=== PATIENT | female | born 1950 | race Caucasian/White ===

== ENCOUNTER 2017-04-16 15:53 | Outpatient (CLI) | payer MEDICARE, OTHER ==
--- NOTE | 2017-04-20 18:26 | Mammography Report ---
DIGITAL SCREENING MAMMOGRAM: 04/16/2017 CLINICAL INDICATION: A 66-year-old nulliparous patient for screening. The patient's previous mammograms have been purged. Comparison is made to report of bilateral screen ing mammogram of 01/01/2006. TECHNIQUE: Routine CC and MLO projections as well as bilateral laterally exaggerated craniocaudal vi ews were obtained of the breasts. The breasts demonstrate heterogeneously dense fibroglandular parenchyma bilaterally. Coarse, typical ly benign calcifications are present. No suspicious masses, clustered microcalcifications, or region s of architectural distortion are identified. IMPRESSION: BENIGN FINDINGS. RECOMMENDATION: ROUTINE ANNUAL SCREENING UNLESS OTHERWISE CLINICALLY INDICATED. BIRADS CATEGORY: 2, BENIGN FINDINGS. STANDARD QUALIFYING STATEMENTS 1. This examination was reviewed with the aid of Computed-Aided Detection (CAD). 2. A negative or benign imaging report should not delay biopsy if clinically suspicious findings are present. Consider surgical consultation if warranted. More than 5% of cancers are not identified b y imaging. 3. Dense breasts may obscure an underlying neoplasm. JOB #: [id number] EXT JOB #:[id number]
== END 2017-04-16 15:54 | disposition home or self-care (01) ==
LOC: DI.S 15:53
PROVIDERS: ATTEND Physician Assistant
DX: Z12.31 Encounter for screening mammogram for malignant neoplasm of breast (principal)
CPT/HCPCS: 77067

== ENCOUNTER 2017-04-16 15:54 | Outpatient (CLI) | payer MEDICARE, OTHER ==
--- NOTE | 2017-04-16 17:07 | XRAY Report ---
EXAM: CHEST RADIOGRAPHY EXAM DATE: 04/16/2017 04:21 PM. CLINICAL HISTORY: COUGH,SMOKER. COMPARISON: None. TECHNIQUE: 2 views. FINDINGS: Lungs/Pleura: No focal opacities evident. No pleural effusion. No pneumothorax. Increased volumes. Mediastinum: Heart and mediastinal contours are unremarkable. Other: None. IMPRESSION: Increased volumes may be due to inspiration effort or obstructive airways disease [facility] Referring Provider Line: [phone] SITE ID: [id number]
== END 2017-04-16 15:55 | disposition home or self-care (01) ==
LOC: DI.S 15:54
PROVIDERS: ATTEND Physician Assistant
DX: R05 Cough (principal); Z87.891 Personal history of nicotine dependence
CPT/HCPCS: 71020

== ENCOUNTER 2022-04-20 14:01 | Outpatient (CLI) | payer MEDICARE ==
--- NOTE | 2022-04-20 16:26 | XRAY Report ---
PROCEDURE: Hand 3 View BILAT INDICATIONS: PSORIASIS TECHNIQUE: 3 views of the hand(s) acquired. COMPARISON: None FINDINGS: Bones: No fractures or dislocations. Mild joint space narrowing and bilateral MCP joints and interp halangeal joints are seen. Subtle erosion are noted involving dorsal aspect of bilateral third metaca rpal heads. No suspicious bony lesions. Soft tissues: No suspicious soft tissue calcifications. 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 Possible erosions involving bilateral third metacarpa l heads concerning for changes related to inflammatory arthropathy. Reviewed by: Tanner Jimenez MD on 04/20/2022 4:24 PM PDT Approved by: Tanner Jimenez MD on 04/20/2022 4:24 PM PDT Station ID: [id number]
[2022-04-20 20:20] LABS: EOSINOPHILS # (AUTO) 0.1 10^3/uL (0.0-0.7); EOSINOPHILS % (AUTO) 2.7 %; HCT - HEMATOCRIT 43.4 % (37.0-47.0); HGB - HEMOGLOBIN 14.9 g/dL (12.0-16.0); LYMPHOCYTES # (AUTO) 1.1 10^3/uL (1.5-3.5); LYMPHOCYTES % (AUTO) 26.3 %; MEAN CORPUSCULAR HEMOGLOBIN 35.6 pg (27.0-31.0); MEAN CORPUSCULAR HGB CONC 34.3 g/dL (32.0-36.0); MEAN CORPUSCULAR VOLUME 103.6 fL (81.0-99.0); MEAN PLATELET VOLUME 12.1 fL (7.9-10.8); MONOCYTES # (AUTO) 0.5 10^3/uL (0.0-1.0); MONOCYTES % (AUTO) 12.9 %; NEUTROPHILS # (AUTO) 2.3 10^3/uL (1.5-6.6); NEUTROPHILS % (AUTO) 56.9 %; PLT - PLATELET COUNT 95 10^3/uL (130-450); RED BLOOD COUNT 4.19 10^6/uL (4.20-5.40); RED CELL DISTRIBUTION WIDTH 12.8 % (12.0-15.0); WHITE BLOOD COUNT 4.1 x10^3/uL (4.8-10.8)
[2022-04-20 20:38] LABS: ALBUMIN 3.6 g/dL (3.2-5.5); ALBUMIN/GLOBULIN RATIO 1.3 (1.0-2.2); ALKALINE PHOSPHATASE 90 IU/L (42-121); ALT ALANINE AMINOTRANSFERASE 39 IU/L (10-60); AST ASPARTATE AMINOTRANSFERASE 53 IU/L (10-42); BILIRUBIN,TOTAL 1.4 mg/dL (0.2-1.0); BUN - BLOOD UREA NITROGEN 28 mg/dL (6-20); CALCIUM 9.1 mg/dL (8.5-10.3); CARBON DIOXIDE - CO2 27 mmol/L (21-32); CHLORIDE 107 mmol/L (101-111); CREATININE 0.8 mg/dL (0.4-1.0); GFR - MDRD 71 (>89); GLUCOSE 96 mg/dL (70-100); POTASSIUM 4.2 mmol/L (3.5-5.0); SODIUM 140 mmol/L (135-145); TOTAL PROTEIN 6.4 g/dL (6.7-8.2)
[2022-04-20 20:57] LABS: CRP - C-REACTIVE PROTEIN < 1.0 mg/dL (0-1.0)
== END 2022-04-20 14:02 | disposition home or self-care (01) ==
LOC: LAB.S 14:01 → DI.S 14:02
PROVIDERS: ATTEND Nurse Practitioner
DX: M19.041 Primary osteoarthritis, right hand (principal); M19.042 Primary osteoarthritis, left hand; L40.9 Psoriasis, unspecified
CPT/HCPCS: 36415; 80053; 85025; 85651; 86140

== ENCOUNTER 2022-05-01 14:11 | Outpatient (CLI) | payer MEDICARE ==
[2022-05-01 20:35] LABS: INR 1.6 (0.8-1.2); PT - PROTHROMBIN TIME 17.2 secs (9.9-12.6)
== END 2022-05-01 14:12 | disposition home or self-care (01) ==
LOC: LAB.S 14:11
PROVIDERS: ATTEND Internal Medicine
DX: C22.0 Liver cell carcinoma (principal); I85.00 Esophageal varices without bleeding; K74.60 Unspecified cirrhosis of liver
CPT/HCPCS: 36415; 82105; 85610

== ENCOUNTER 2022-10-16 14:43 | Outpatient (CLI) | payer MEDICARE ==
[2022-10-16 19:40] LABS: BASOPHILS % (AUTO) 1.1 %; EOSINOPHILS # (AUTO) 0.1 10^3/uL (0.0-0.7); EOSINOPHILS % (AUTO) 2.8 %; HCT - HEMATOCRIT 44.9 % (37.0-47.0); LYMPHOCYTES # (AUTO) 1.3 10^3/uL (1.5-3.5); LYMPHOCYTES % (AUTO) 35.9 %; MEAN CORPUSCULAR HEMOGLOBIN 34.6 pg (27.0-31.0); MEAN CORPUSCULAR HGB CONC 33.4 g/dL (32.0-36.0); MEAN CORPUSCULAR VOLUME 103.7 fL (81.0-99.0); MEAN PLATELET VOLUME 11.4 fL (7.9-10.8); MONOCYTES # (AUTO) 0.5 10^3/uL (0.0-1.0); MONOCYTES % (AUTO) 13.7 %; NEUTROPHILS # (AUTO) 1.6 10^3/uL (1.5-6.6); NEUTROPHILS % (AUTO) 46.5 %; PLT - PLATELET COUNT 102 10^3/uL (130-450); RED BLOOD COUNT 4.33 10^6/uL (4.20-5.40); RED CELL DISTRIBUTION WIDTH 12.8 % (12.0-15.0); WHITE BLOOD COUNT 3.5 x10^3/uL (4.8-10.8)
[2022-10-16 20:06] LABS: INR 1.5 (0.8-1.2)
[2022-10-16 20:13] LABS: ALBUMIN 3.5 g/dL (3.2-5.5); ALBUMIN/GLOBULIN RATIO 1.3 (1.0-2.2); BILIRUBIN,TOTAL 1.5 mg/dL (0.2-1.0); CALCIUM 8.8 mg/dL (8.5-10.3); CREATININE 0.8 mg/dL (0.4-1.0); POTASSIUM 3.9 mmol/L (3.5-5.0); TOTAL PROTEIN 6.3 g/dL (6.7-8.2)
== END 2022-10-16 14:44 | disposition home or self-care (01) ==
LOC: LAB.S 14:43
PROVIDERS: ATTEND Internal Medicine Gastroenterology
DX: C22.0 Liver cell carcinoma (principal); I85.00 Esophageal varices without bleeding; K74.60 Unspecified cirrhosis of liver
CPT/HCPCS: 36415; 80053; 82105; 85025; 85610

== ENCOUNTER 2023-06-17 06:34 | Day surgery (SDC) | payer MEDICARE ==
[~2023-06-17 06:34] MED LIST: CYCLOPENTOLATE 1% OPHTH DROPS 2 ML ONE; KETOROLAC 0.45% OPHTH DROPS ONE; PHENYLEPHRINE 2.5% OPHTH 2 ML DROPS ONE; PROPARACAINE 0.5% OPHTH DROPS 15 ML ONE
[2023-06-17] MEDS ORDERED: LACTATED RINGERS 1,000 ML IV ONE ×3 (06:44→08:22)
[2023-06-17] MEDS ORDERED: KETOROLAC 0.45% OPHTH DROPS RIGHTEYE ONE (06:55)
[2023-06-17] MEDS ORDERED: PROPARACAINE 0.5% OPHTH DROPS 15 ML RIGHTEYE ONE ×2 (06:55→08:07)
[2023-06-17] MEDS ORDERED: PHENYLEPHRINE 2.5% OPHTH 2 ML DROPS RIGHTEYE ONE (07:00)
[2023-06-17] MEDS ORDERED: CYCLOPENTOLATE 1% OPHTH DROPS 2 ML RIGHTEYE ONE (07:00)
--- NOTE | 2023-06-17 07:09 | ANESTHESIA ---
Pre-Anesthesia VS, & Labs Height: 5 ft 7 in Weight (kg): 68.6 kg Body Mass Index: 23.6 BMI Classification: Normal - NPO >8 hours - Is Patient ?: No - Lab Results Lab results reviewed: Yes - Diagnosis R senile combined cataract (Marshal Calvert) - Procedure R extraction cataract c IOL (Marshal Calvert) Vital Signs: Temp Pulse Resp BP Pulse Ox O2 Flow Rate 37 C 61 15 136/72 H 100 06/17/23 06:58 06/17/23 06:58 06/17/23 06:58 06/17/23 06:58 06/17/23 06:58 Home Medications and Allergies Home Medications: Ambulatory Orders Famotidine [Acid Coding Manager] 20 mg PO HS 06/16/23 Furosemide [Lasix] 40 mg PO DAILY PRN 06/16/23 Spironolactone [Aldactone] 50 mg PO DAILY PRN 06/16/23 nadoloL [Corgard] 20 mg PO DAILY 06/16/23 oxyCODONE [Roxicodone] 2.5 mg PO Q4HR 06/16/23 Famotidine [Acid Coding Manager] 20 mg PO HS 06/16/23 Furosemide [Lasix] 40 mg PO DAILY PRN 06/16/23 Spironolactone [Aldactone] 50 mg PO DAILY PRN 06/16/23 nadoloL [Corgard] 20 mg PO DAILY 06/16/23 oxyCODONE [Roxicodone] 2.5 mg PO Q4HR 06/16/23 Allergies/Adverse Reactions: Allergies Allergy/AdvReac Type Severity Reaction Status Date / Time cephalexin [From Keflex] Allergy Rash Verified 06/16/23 13:58 Penicillins Allergy Rash Verified 06/16/23 13:58 metronidazole [From Flagyl] AdvReac Unknown Verified 06/16/23 13:58 Anes History & Medical History - Anesthetic History Anesthesia Complications: reports: No previous complications Family history of Anesthesia Complications: Denies Family history of Malignant Hyperthermia: Denies - Medical History Cardiovascular: reports: None Pulmonary: reports: Other Gastrointestinal: reports: Cirrhosis, Other Urinary: reports: None Musculoskeletal: reports: Other Skin: reports: Psoriasis Psychosocial: reports: Anxiety - Surgical History Eyes Ears Nose Throat (EENT): reports: Tonsil/Adenoidectomy Gynecologic: reports: Hysterectomy, Oophrectomy Exam General: Alert, Oriented x3, Cooperative Dental: WNL Mouth Openin Fingerbreadth Neck Mobility: Normal Mallampati classification: II Respiratory: Normal breath sounds Cardiovascular: Regular rate Neurological: Normal speech Mental/Cognitive Status: Alert/Oriented X3, Normal for patient Cognitive Status: Within normal limits Plan Anesthesia Type: MAC Consent for Procedure(s) Verified and Reviewed: Yes Code Status: Attempt Resuscitation ASA classification: 2-Mild systemic disease Is this case an emergency?: No
[2023-06-17] MEDS ORDERED: MIDAZOLAM 2 MG/2 ML VIAL ONE (07:27)
[2023-06-17] MEDS ORDERED: EPINEPHrine 1 MG/ML AMP ONE (07:41)
[2023-06-17] MEDS ORDERED: BRIMONIDINE 0.2% OPHTH DROPS 5 ML ONE (07:41)
[2023-06-17] MEDS ORDERED: TRIAMCIN/MOXIFLOX OPHTHALMIC 0.6 ML VIAL IO ONE ×2 (07:41→08:07)
[2023-06-17] MEDS ORDERED: TIMOLOL 0.5% OPHTH DROPS ONE (07:42)
[2023-06-17] MEDS ORDERED: BSS/LIDOCAINE/EPINEPHRINE 1 ML VIAL ONE (07:42)
[2023-06-17] MEDS ORDERED: fentaNYL 100 MCG/2 ML VIAL ONE (07:46)
[2023-06-17] MEDS ORDERED: LIDOCAINE-PF 2% 10 ML AMP SUBQ ONE (07:57)
[2023-06-17] MEDS ORDERED: EPINEPHrine 1 MG/ML AMP IR ONE (08:06)
[2023-06-17] MEDS ORDERED: BRIMONIDINE 0.2% OPHTH DROPS 5 ML OPTH ONE (08:06)
[2023-06-17] MEDS ORDERED: TIMOLOL 0.5% OPHTH DROPS OPTH ONE (08:07)
[2023-06-17] MEDS ORDERED: VANCOMYCIN OPHTH (TOPICAL) 10 MG/ML SYRINGE TOP ONE (08:07)
[2023-06-17] MEDS ORDERED: BSS/LIDOCAINE/EPINEPHRINE 1 ML SYRINGE IO ONE (08:07)
--- NOTE | 2023-06-17 08:33 | OPERATIVE REPORT ---
Operative Report - Other Other Information/Narrative: Date of Surgery: 06/17/23 Preop Dx: Visually significant cataract right eye. This was the first cataract surgery. Postop Dx: Same Procedure: Phacoemulsification with posterior chamber intraocular lens implant right eye Surgeon: Dr. 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 Best corrected visual acuity was 20/25 with glare to 20/70 vision in the right eye. Indications for surgery were: - Overall decrease in vision - Difficulty seeing words on a computer screen - Difficulty reading - Difficulty seeing street signs - Difficulty driving in low light or at night - Difficulty driving at night because of headlights from other vehicles - Difficulty with glare or bright lights in any situation The patient was consented at length concerning the risks and benefits of cataract surgery after which the patient expressed a desire to proceed with surgery. Operative Procedure: The patient was taken into OR#3 and placed under monitored anesthesia care. A surgical time-out was conducted confirming correct patient, correct procedure, and correct surgical site. The patient was given topical anesthesia and then prepped and draped in the usual sterile fashion. The eye was entered at the 6 and 3 oclock positions. Intracameral Shugarcaine was injected into the anterior chamber followed by a dispersive viscoelastic. A continuous-tear curvilinear capsulorhexis was performed. The nucleus was hydrodissected and phacoemulsified. The cortex was evacuated using automated infusion and aspiration. A cohesive viscoelastic was injected into the capsular bag and a 19.0 diopter intraocular lens was inserted into the bag. Infusion and aspiration were used to evacuate the viscoelastic materials from the eye. The wo unds were hydrated and the eye inflated to physiologic pressure using balanced salt solution. Approximately 0.25ml of a mixture of triamcinolone and moxifloxacin was injected trans-sclerally into the vitreous in the inferotemporal quadrant using a 30 gauge cannula. An additional 0.25ml of a mixture of triamcinolone and moxifloxacin was injected subconjunctivally in the superior quadrant for infection and inflammation prophylaxis. Wound integrity was checked with Weck-Margarita sponges and the phaco wound was found to be leaking. A 10-0 Nylon suture was placed across the wound and the leaking stopped. The patient was taken from the operating room in good condition and given post-op instructions.
[2023-06-17 08:38] VITALS: O2SAT 100
--- NOTE | 2023-06-17 08:43 | ANESTHESIA POST OP EVALUATION ---
Anesthesia Post Eval - Post Anesthesia Eval Vitals: Last Vital Signs Temp 36.3 C L 06/17/23 08:32 Pulse 16 L 06/17/23 08:32 Resp 16 06/17/23 08:32 BP 131/64 H 06/17/23 08:32 Pulse Ox 100 06/17/23 08:32 O2 Flow Rate CV Function Including HR & BP: Stable Pain Control: Satisfactory Nausea & Vomiting: Negative Mental Status: Baseline Respiratory Status: Airway Patent Hydration Status: Satisfactory Anesthesia Complications: None
[2023-06-17 08:58] VITALS: BP 115/66
== END 2023-06-17 06:35 | disposition home or self-care (01) ==
LOC: SDS 06:34
PROVIDERS: ATTEND Ophthalmology
DX: H25.811 Combined forms of age-related cataract, right eye (principal)
CPT/HCPCS: 66984; A9270; J3490; J7120

== ENCOUNTER 2023-08-05 14:02 | Outpatient (CLI) | payer MEDICARE ==
[2023-08-05 19:52] LABS: EOSINOPHILS # (AUTO) 0.1 10^3/uL (0.0-0.7); EOSINOPHILS % (AUTO) 2.5 %; HCT - HEMATOCRIT 43.7 % (37.0-47.0); HGB - HEMOGLOBIN 14.7 g/dL (12.0-16.0); LYMPHOCYTES # (AUTO) 1.3 10^3/uL (1.5-3.5); LYMPHOCYTES % (AUTO) 30.9 %; MEAN CORPUSCULAR HEMOGLOBIN 35.1 pg (27.0-31.0); MEAN CORPUSCULAR HGB CONC 33.6 g/dL (32.0-36.0); MEAN CORPUSCULAR VOLUME 104.3 fL (81.0-99.0); MEAN PLATELET VOLUME 11.7 fL (7.9-10.8); MONOCYTES # (AUTO) 0.5 10^3/uL (0.0-1.0); MONOCYTES % (AUTO) 12.6 %; NEUTROPHILS # (AUTO) 2.1 10^3/uL (1.5-6.6); NEUTROPHILS % (AUTO) 52.8 %; PLT - PLATELET COUNT 114 10^3/uL (130-450); RED BLOOD COUNT 4.19 10^6/uL (4.20-5.40); RED CELL DISTRIBUTION WIDTH 13.2 % (12.0-15.0); WHITE BLOOD COUNT 4.1 x10^3/uL (4.8-10.8)
[2023-08-05 20:04] LABS: ALBUMIN 3.5 g/dL (3.2-5.5); ALBUMIN/GLOBULIN RATIO 1.3 (1.0-2.2); BILIRUBIN,TOTAL 1.6 mg/dL (0.2-1.0); CREATININE 0.8 mg/dL (0.6-1.3); POTASSIUM 3.9 mmol/L (3.5-4.5); TOTAL PROTEIN 6.1 g/dL (6.4-8.9)
[2023-08-05 20:14] LABS: INR 1.5 (0.8-1.2)
== END 2023-08-05 14:03 | disposition home or self-care (01) ==
LOC: LAB.S 14:02
PROVIDERS: ATTEND Internal Medicine Gastroenterology
DX: C22.0 Liver cell carcinoma (principal); I85.00 Esophageal varices without bleeding; K74.60 Unspecified cirrhosis of liver
CPT/HCPCS: 36415; 80053; 82105; 85025; 85610

== ENCOUNTER 2024-02-16 14:07 | Outpatient (CLI) | payer MEDICARE ==
[2024-02-16 19:52] LABS: BASOPHILS % (AUTO) 0.7 %; EOSINOPHILS # (AUTO) 0.1 10^3/uL (0.0-0.7); HCT - HEMATOCRIT 43.6 % (37.0-47.0); HGB - HEMOGLOBIN 14.5 g/dL (12.0-16.0); LYMPHOCYTES # (AUTO) 0.8 10^3/uL (1.5-3.5); LYMPHOCYTES % (AUTO) 18.8 %; MEAN CORPUSCULAR HEMOGLOBIN 34.7 pg (27.0-31.0); MEAN CORPUSCULAR HGB CONC 33.3 g/dL (32.0-36.0); MEAN CORPUSCULAR VOLUME 104.3 fL (81.0-99.0); MEAN PLATELET VOLUME 11.5 fL (7.9-10.8); MONOCYTES # (AUTO) 0.4 10^3/uL (0.0-1.0); MONOCYTES % (AUTO) 9.8 %; NEUTROPHILS # (AUTO) 2.9 10^3/uL (1.5-6.6); NEUTROPHILS % (AUTO) 67.7 %; PLT - PLATELET COUNT 104 10^3/uL (130-450); RED BLOOD COUNT 4.18 10^6/uL (4.20-5.40); WHITE BLOOD COUNT 4.3 x10^3/uL (4.8-10.8)
[2024-02-16 20:04] LABS: ALBUMIN 3.5 g/dL (3.2-5.5); ALBUMIN/GLOBULIN RATIO 1.8 (1.0-2.2); BILIRUBIN,TOTAL 1.4 mg/dL (0.2-1.0); CREATININE 0.7 mg/dL (0.6-1.3); CRP - C-REACTIVE PROTEIN 0.5 mg/dL (<0.5); TOTAL PROTEIN 5.5 g/dL (6.4-8.9)
== END 2024-02-16 14:08 | disposition home or self-care (01) ==
LOC: LAB.S 14:07
PROVIDERS: ATTEND Nurse Practitioner
DX: L40.50 Arthropathic psoriasis, unspecified (principal); Z79.891 Long term (current) use of opiate analgesic
CPT/HCPCS: 36415; 80053; 85025; 85651; 86140

== ENCOUNTER 2024-03-20 14:07 | Outpatient (CLI) | payer MEDICARE | END 2024-03-20 14:08 | disposition home or self-care (01) | LOC: LAB.S 14:07 | PROVIDERS: ATTEND Internal Medicine Gastroenterology | DX: K74.69 Other cirrhosis of liver (principal); C22.0 Liver cell carcinoma | CPT/HCPCS: 36415; 80053; 82105; 85025; 85651; 86140 ==